=== PATIENT | female | born 1990 | race American Indian/Alaskan Native ===

== ENCOUNTER 2019-09-26 09:11 | Emergency (ER) | payer SELFPAY ==
[2019-09-26] MEDS ORDERED: Clindamycin HCl 150 MG Cap PO ONE (09:33)
[2019-09-26] MEDS ORDERED: Acetaminophen/oxyCODONE 325-5 MG Tab PO ONE (09:34)
--- NOTE | 2019-09-26 09:39 | EDM.PDOC ---
ED HPI GENERAL MEDICAL PROBLEM - General Chief Complaint: ENT Problem Stated Complaint: DENTAL COMPLAINT Time Seen by Provider: 09/26/19 09:33 Source of Information: Reports: Patient History Limitations: Reports: No Limitations - History of Present Illness INITIAL COMMENTS - FREE TEXT/NARRATIVE: 29-year-old female presents to the ED with a week's history of gradually worsening dental pain involving the left lower molar tooth. She has no recent dental procedures or surgeries performed. She states the last 24 hours the pain is constant and unrelenting. She has been using Aleve orally and topical ( Ambusol) is to numb the pain. These are not working very well. She is finding it difficult to chew on the left side. No facial swelling. No fever or chills. Her knowledge the tooth is not been fractured or decayed. It does have a filling within it. Onset: Gradual Onset Date: 09/20/19 Duration: Day(s):, Getting Worse Location: Reports: Face ( 50 mils per hour. Ental pain involving left lower molar tooth.) Quality: Reports: Ache Severity: Moderate Improves with: Reports: None Worsens with: Reports: None. Denies: Immobilization Context: Denies: Activity, Exercise, Lifting, Sick Contact, Trauma, Other Associated Symptoms: Reports: No Other Symptoms Treatments STEEL BUFFER: Reports: NSAIDS (Primarily Aleve.) Left Lower Tooth/Teeth Pain Score (Numeric/FACES): 5 - Related Data Allergies Allergy/AdvReac Type Severity Reaction Status Date / Time No Known Allergies Allergy Verified 09/26/19 09:27 Home Meds: Home Meds Pnv No.95/Ferrous Fum/Folic AC [ Caplet] 1 tab PO DAILY 09/24/18 [History] Clindamycin HCl 300 mg PO TID #21 capsule 09/26/19 [Rx] oxyCODONE HCl/Acetaminophen [Percocet 5-325 mg Tablet] 1 - 2 each PO Q4H PRN #12 tablet 09/26/19 [Rx] Past Medical History - Past Health History Medical/Surgical History: Denies Medical/Surgical History Social & Family History - Tobacco Use Smoking Status *Q: Current Every Day Smoker Years of Tobacco use: 10 Packs/Tins Daily: 0.5 - Caffeine Use Caffeine Use: Reports: Coffee - Recreational Drug Use Recreational Drug Use: No - Living Situation & Occupation Living situation: Reports: Occupation: Unemployed ED ROS ENT - Review of Systems Review Of Systems: See Below Constitutional: Reports: Decreased Appetite. Denies: Fever, Chills, Malaise, Weakness, Fatigue, Weight Loss HEENT: Reports: Dental Pain (Left lower second molar tooth.) Respiratory: Reports: No Symptoms Cardiovascular: Reports: No Symptoms Endocrine: Reports: No Symptoms GI/Abdominal: Reports: Decreased Appetite : Reports: No Symptoms Musculoskeletal: Reports: No Symptoms Skin: Reports: No Symptoms Neurological: Reports: No Symptoms Psychiatric: Reports: No Symptoms Hematologic/Lymphatic: Reports: No Symptoms Immunologic: Reports: No Symptoms ED EXAM, ENT - Physical Exam Exam: See Below Exam Limited By: No Limitations General Appearance: Alert, WD/WN, No Apparent Distress, Other (Temperature is 36.7. Pulse ox 99% room air. Respiratory of 16 heart rate 80 BP 126/70) Eye Exam: Bilateral Eye: Normal Inspection, PERRL Ears: Normal TMs, Other (Mild pain over the left temporomandibular joint.) Mouth/Throat: Normal Oropharynx, Dental Pain (Dental pain left lower second molar tooth with palpation with tongue blade. No surrounding gingiva inflammation or abscess. The tooth has been filled in the past. Suspect the feeling may be loose which is introduce bacteria into the), Dental Tenderness ( root of the tooth.). No: Dental Abcess, Gum Swelling, Hoarse Voice, Lip Swelling Head: Atraumatic, Normocephalic Neck: Normal Inspection, Supple, Non-Tender, Full Range of Motion. No: L ymphadenopathy (L), Lymphadenopathy (R) Respiratory/Chest: No Respiratory Distress, Lungs Clear, Normal Breath Sounds, No Accessory Muscle Use Cardiovascular: Regular Rate, Rhythm, No Edema, No Gallop, No JVD, No Murmur, No Rub Course - Vital Signs Last Recorded V/S: Last Vital Signs Temp 36.7 C 09/26/19 09:26 Pulse 80 09/26/19 09:26 Resp 16 09/26/19 09:26 BP 126/70 09/26/19 09:26 Pulse Ox 99 09/26/19 09:26 - Orders/Labs/Meds Meds: Medications Discontinued Medications Generic Name Dose Route Start Last Admin Trade Name Freq PRN Reason Stop Dose Admin Clindamycin HCl 300 mg 09/26/19 09:33 Cleocin PO 09/26/19 09:34 ONETIME ONE Oxycodone/Acetaminophen 1 tab 09/26/19 09:34 Percocet 325-5 Mg PO 09/26/19 09:35 ONETIME ONE - Radiology Interpretation Free Text/Narrative:: 29-year-old female presents to the ED with a one-week history of gradually worsening dental pain involving left lower molar tooth. Appears to be a second molar tooth which has been filled in the past. The tooth itself appears to be in good shape with no dental caries or obvious source for an infective process. Gingiva surrounding the tooth appears normal. Tooth is painful to touch with a tongue blade. Plan clindamycin 300 mg 3 times daily for the next week. Continue Aleve 2 tablets every 8 hours to reduce pain and inflammation. Percocet tablets 5 325 mg strength 1 or 2 every 4-6 hours necessary for pain relief for the next few days until the antibiotics become effective. She will of course follow-up with dentist as soon as possible. Departure - Departure Time of Disposition: 09:35 Disposition: Home, Self-Care 01 Condition: Fair Clinical Impression: Dental infection - Discharge Information *PRESCRIPTION DRUG MONITORING PROGRAM REVIEWED*: Not Applicable *COPY OF PRESCRIPTION DRUG MONITORING REPORT IN PATIENT SANDY: Not Applicable Prescriptions: Clindamycin HCl 300 mg PO TID #21 capsule oxyCODONE HCl/Acetaminophen [Percocet 5-325 mg Tablet] 1 - 2 each PO Q4H PRN #12 tablet PRN Reason: pain relief. Referrals: PCP,Not In Area [Primary Care Provider] - Forms: ED Department Discharge Additional Instructions: Evaluation in the emergency room this morning in regards to persistent and gradually worsening dental pain involving the left lower third molar tooth. The teeth are actually in very good condition with no obvious dental caries present. I suspect the filling in the left lower molar is loose and has allowed bacteria to enter into the root of the tooth causing a dental infection. Treatment is therefore antibiotic. Suggest clindamycin 300 mg 3 times daily for the next 7 days to clear up dental infection. Continue anti-inflammatory Aleve 2 tablets every 8 hours to reduce pain and inflammation. Percocet tablets 5/325 mg tablet 1 or 2 every 4-6 hours as necessary for pain relief for the next 2 to 3 days until the antibiotic becomes effective. Follow-up with a dentist as soon as possible to have x-rays performed and definitive management. Sepsis Event Note (ED) - Evaluation Sepsis Screening Result: No Definite Risk - Focused Exam Vital Signs: Vital Signs Temp Pulse Resp BP Pulse Ox 09/26/19 09:26 36.7 C 80 16 126/70 99
== END 2019-09-26 09:50 | disposition home or self-care (01) ==
LOC: JD.ED 09:11
DX: K04.7 Periapical abscess without sinus (principal); F17.210 Nicotine dependence, cigarettes, uncomplicated
CPT/HCPCS: 99282; A9270; 99283

== ENCOUNTER 2024-04-14 09:52 | Emergency (ER) | payer MEDICAID ==
[2024-04-14 11:30] LABS: APPEARANCE,URINE TURBID (Clear); BILIRUBIN,URINE NEGATIVE (Negative); COLOR,URINE YELLOW (Yellow); GLUCOSE,URINE NEGATIVE (Negative); KETONES,URINE 1+ (Negative); LEUKOCYTE ESTERASE,URINE 3+ (Negative); NITRITE,URINE NEGATIVE (Negative); OCCULT BLOOD,URINE 3+ (Negative); PROTEIN,URINE 2+ (Negative); UROBILINOGEN,URINE 0.2 (0.2-1.0)
[2024-04-14 11:41] LABS: BACTERIA,URINE MANY /hpf (FEW); MUCUS,URINE FEW /hpf (FEW); RBC,URINE >100 /hpf (0-5); SQUAMOUS EPITHELIAL CELLS,UR 50-75 /hpf (0-5); WBC,URINE >100 /hpf (0-5)
[2024-04-14 11:53] LABS: BARBITURATE SCREEN,URINE NEGATIVE (CUTOFF=200); BENZODIAZEPINES SCREEN,URINE NEGATIVE (CUTOFF=150); BUPRENORPHINE SCREEN,URINE NEGATIVE (CUTOFF=10); METHADONE SCREEN, URINE NEGATIVE (CUTOFF=200); METHAMPHETAMINES SCREEN, URINE PRESUMPTIVE POSITIVE (CUTOFF=500); OXYCODONE SCREEN,URINE NEGATIVE (CUT0FF=100); THC SCREEN,URINE 20 NG/ML NEGATIVE (CUTOFF=50)
[2024-04-14 11:55] LABS: AMPHETAMINES SCREEN, URINE PRESUMPTIVE POSITIVE (CUTOFF=500)
[2024-04-14 12:09] LABS: BASOPHILS PERCENT AUTO 0.3 % (0.0-1.0); EOSINOPHILS PERCENT AUTO 0.2 % (0.0-6.0); HEMATOCRIT 41.2 % (37.0-47.0); HEMOGLOBIN 13.9 gm/dl (12.0-16.0); IMMATURE GRAN ABSOLUTE AUTO 0.04 K/mm3 (0.00-0.05); IMMATURE GRAN PERCENT AUTO 0.3 % (0.0-0.4); LYMPHOCYTES ABSOLUTE AUTO 1.5 K/mm3 (1.0-4.8); LYMPHOCYTES PERCENT AUTO 11.2 % (24.0-44.0); MEAN CORPUSCULAR HEMOGLOBIN 31.3 pg (28.0-32.0); MEAN CORPUSCULAR HGB CONC 33.7 g/dl (32.0-36.0); MEAN CORPUSCULAR VOLUME 92.8 fl (83.0-99.0); MEAN PLATELET VOLUME 9.8 fl (9.4-12.3); MONOCYTES ABSOLUTE AUTO 0.9 K/mm3 (0.0-0.8); MONOCYTES PERCENT AUTO 6.9 % (0.0-8.0); NEUTROPHILS ABSOLUTE AUTO 10.7 K/mm3 (1.8-7.7); NEUTROPHILS PERCENT AUTO 81.1 % (41.0-71.0); PLATELET COUNT,PLT 304 K/mm3 (150-400); RED BLOOD CELL COUNT 4.44 M/mm3 (4.10-5.30); WHITE BLOOD CELL COUNT,WBC 13.13 K/mm3 (3.9-11.3)
[2024-04-14 12:52] LABS: A/G RATIO 1.1 (1-2); ALBUMIN 4.5 g/dl (3.4-5.0); ANION GAP 15.8 (5-15); BILIRUBIN TOTAL 0.9 mg/dL (0.2-1.0); EST CRCL DRUG DOSING (CG) 77.08 mL/min; POTASSIUM,K 4.8 mEq/L (3.5-5.1); PROTEIN TOTAL,TP 8.6 g/dl (6.4-8.2)
[2024-04-14 14:07] LABS: C. TRACHOMATIS BY PCR NOT DETECTED; N. GONORRHOEAE BY PCR NOT DETECTED
== END 2024-04-14 12:15 | disposition home or self-care (01) ==
LOC: JD.ED 09:52
DX: R10.30 Lower abdominal pain, unspecified (principal); Z79.899 Other long term (current) drug therapy
CPT/HCPCS: 36415; 80053; 80306; 80307; 81001; 81025; 81515; 85025; 87086; 87491; 87591; 93005; 93010; 99283; 99284